=== PATIENT | female | born 1985 | race Caucasian/White ===

== ENCOUNTER 2021-01-03 | Inpatient (IN) | payer BC, SELFPAY ==
[2021-01-03] VITALS (189 sets, daily range): BP systolic 112–174; BP diastolic 64–99; PULSE 48–138; RESP 18; TEMP 36.4–37.6; O2SAT 97–100; BMI 40.2
[2021-01-03 01:03] LABS: Basophils Percent Auto 0.2 % (0.2-1.2); Eosinophils Percent Auto 0.3 % (0-4.4); Hematocrit 33.4 % (37.0-47.0); Hemoglobin 11.4 g/dL (12.0-15.0); Immature Granulocyte Absolute 0.07 K/mm3 (0.00-0.031); Immature Granulocyte Percent A 0.7 % (0-0.5); Lymphocytes Absolute Auto 2.44 K/mm3 (0.9-3.2); Mean Corpuscular HGB Conc 34.1 g/dl (32-36); Mean Corpuscular Hemoglobin 31.1 pg (26-34); Mean Corpuscular Volume 91.3 fl (80-100); Mean Platelet Volume 11.4 fl (7.4-10.4); Monocytes Absolute Auto 0.7 K/mm3 (0.1-0.6); Monocytes Percent Auto 7.2 % (2.6-8.5); Neutrophils Absolute Auto 6.9 K/mm3 (1.3-6.7); Neutrophils Percent Auto 67.6 % (45.5-73.1); Platelet Count Result 218 k/mm3 (150-375); Red Blood Count 3.66 M/mm3 (4.2-5.4); Red Cell Distribution Width 13.3 % (11.5-14.5); White Blood Count 10.2 K/mm3 (4.5-10.0)
--- NOTE | 2021-01-03 01:03 | LDADM ---
This patient, Janell Gomez, was admitted to Labor/Delivery/Recovery 107 on 01/03/21 at 00:00. Plans for labor, pain management and were discussed with patient. Patient/family oriented to hospital policies and general routines including ID bracelet, bed and alarms, visiting hours, pain management, procedures, bathroom and other care routines, personal items, smoking policy, room service/diet and guest tray routines, security routines, and visiting hours. Patient/Family are encouraged to report perceived risks to care and to ask questions if they do not understand what they are told or what they should do. See OBIX for further documentation.
[2021-01-03] MEDS: DINOPROSTONE 10 MG VAG INSERT VAGINAL (01:33)
[2021-01-03 06:11] LABS: Rapid Plasma Reagin Non-Reactive (NonReactive)
[2021-01-03 07:01] LABS: Glucose Point of Care 71 mg/dl (65-105)
--- NOTE | 2021-01-03 07:42 | WPDANESEPP ---
Anes - Eval Pre Procedure Procedure: LABOR EPIDURAL Date/Time: 01/03/21 07:42 Surgeon: deo Preop Diagnosis: pain during labor Pre Op Diagnosis: IOL Patient Data Age: 35 Gender: F Height: 1.7 m Weight: 116.5 kg Last Vital Signs Temp 36.6 C 01/03/21 07:00 Pulse 79 01/03/21 03:31 BP 126/92 H 01/03/21 03:31 Allergies Allergy/AdvReac Type Severity Reaction Status Date / Time No Known Allergies Allergy Unverified 07/14/16 15:39 Home Medications Medication Instructions Recorded Confirmed Type PNV cmb#95-ferrous fumarate-FA 1 tablet PO DAILY 12/16/20 12/16/20 History [] aspirin 81 mg PO DAILY 12/16/20 12/16/20 History Laboratory Tests 01/03/21 01/03/21 01/03/21 00:57 00:57 00:57 WBC 10.2 K/mm3 H K/mm3 (4.5-10.0) RBC 3.66 M/mm3 L M/mm3 (4.2-5.4) Hgb 11.4 g/dL L g/dL (12.0-15.0) Hct 33.4 % L % (37.0-47.0) MCV 91.3 fl fl (80-100) MCH 31.1 pg pg (26-34) MCHC 34.1 g/dl g/dl (32-36) RDW 13.3 % % (11.5-14.5) Plt Count 218 k/mm3 k/mm3 (150-375) MPV 11.4 fl H fl (7.4-10.4) Immature Gran % (Auto) 0.7 % H % (0-0.5) Neut % (Auto) 67.6 % % (45.5-73.1) Lymph % (Auto) 24.0 % % (18.3-44.2) Metcalfe % (Auto) 7.2 % % (2.6-8.5) Eos % (Auto) 0.3 % % (0-4.4) Baso % (Auto) 0.2 % % (0.2-1.2) Lymph # (Auto) 2.44 K/mm3 K/mm3 (0.9-3.2) Metcalfe # (Auto) 0.7 K/mm3 H K/mm3 (0.1-0.6) Eos # (Auto) 0.0 K/mm3 K/mm3 (0-0.3) Baso # (Auto) 0.0 K/mm3 K/mm3 (0.0-0.1) Abs Immat Gran (auto) 0.07 K/mm3 H K/mm3 (0.00-0.031) Absolute Neuts (auto) 6.9 K/mm3 H K/mm3 (1.3-6.7) Absolute Nucleated RBC 0.0 K/mm3 K/mm3 (0.0-0.012) Nucleated RBC % 0.0 % % (0.0-0.2) POC Capillary Glucose RPR Non-reactive (NonReactive) Blood Type A Positive Antibody Screen Negative 01/03/21 06:57 WBC RBC Hgb Hct MCV MCH MCHC RDW Plt Count MPV Immature Gran % (Auto) Neut % (Auto) Lymph % (Auto) Metcalfe % (Auto) Eos % (Auto) Baso % (Auto) Lymph # (Auto) Metcalfe # (Auto) Eos # (Auto) Baso # (Auto) Abs Immat Gran (auto) Absolute Neuts (auto) Absolute Nucleated RBC Nucleated RBC % POC Capillary Glucose 71 mg/dl mg/dl (65-105) RPR Blood Type Antibody Screen Patient hx anesthesia problems: none Family hx anesthesia problems: none Results Review: All pre-operative results and documents have been reviewed as part of the pre-operative evaluation. [facility] Family History Family History (Updated 12/16/20 @ 14:51 by Chito Cruz RN) Mother Hypertension Social History Social History Substance use: never Spiritual care concerns: No Exam Day of Procedure 01/03/21 07:42
--- NOTE | 2021-01-03 08:51 | P.HP_ITS ---
Obstetrics - Admit Note Admission Note: record reviewed. No pertinent additions to the history and/or any subsequent changes in the physical findings that are not consistent with the expected course of the were found. AROM CLEAR FLUID 1/-2 Additions to the history and/or subsequent changes in the physical findings fabricio epperson. None.
[2021-01-03] MEDS: LACTATED RINGERS 1,000 ML 125 ML IV CONT ×2 (09:21→16:42)
[2021-01-03] MEDS: OXYTOCIN 30 UNITS/NS 500 ML 30 UNITS/500 ML BAG IV CONT (09:21)
[2021-01-03 11:17] LABS: Glucose Point of Care 107 mg/dl (65-105)
[2021-01-03 15:23] LABS: Glucose Point of Care 87 mg/dl (65-105)
[2021-01-03 20:01] LABS: Glucose Point of Care 104 mg/dl (65-105)
--- NOTE | 2021-01-03 21:00 | PM.OBPRVD ---
OB - Delivery Note Procedure Delivery date: 01/03/21 Procedure: events: Gestational Diabetes and Labor Induction Intrapartal events: None Induction method: AROM, per pitocin protocol and per cervidil protocol Delivery monitor: external FHT and external uterine Route of delivery: Episiotomy description: Midline Laceration Description: Perineal - 2nd Degree Delivery repair: vicryl Specimen: Yes Quantitative Blood Loss (ml): 250 Anesthesia type: Epidural Disposition: PACU Baby Date of : 01/03/21 Time of : 20:40 Weeks of gestation at delivery: 39 Infant gender: Male Weight (pounds): 6 Weight (ounces): 11 presentation: vertex position: Left Occiput Anterior Placenta delivery description: Spontaneous cord vessel description: 3 Vessels and Around Extremity x1 score one minute: 9 score five minutes: 9
[2021-01-03] MEDS: OXYTOCIN 30 UNITS/NS 500 ML 30 UNITS/500 ML BAG 125 UNITS IV CONT (21:06)
[2021-01-03] MEDS: IBUPROFEN 600 MG TABLET PO (23:13)
[2021-01-03] MEDS: BENZOCAINE 20% AER SPR (*SP) 56 GM CAN 1 SPRAY TOPICAL (23:13)
[2021-01-03] MEDS: WITCH HAZEL 40 PADS 1 PAD TOPICAL (23:13)
[2021-01-04 04:00] VITALS: BP 141/90; PULSE 72; RESP 18; TEMP 36.6; O2SAT 98
[2021-01-04 05:18] LABS: Hematocrit 31.6 % (37.0-47.0); Hemoglobin 10.8 g/dL (12.0-15.0)
[2021-01-04 07:45] VITALS: BP 136/88; PULSE 77; RESP 16; TEMP 37.4; O2SAT 99
--- NOTE | 2021-01-04 10:00 | PC.NURSE ---
Consult with pt., mother reports her plan is to breast and bottle feed. Discussed milk supply and suggested mother supplement after if she feels is not satisfied. Mother states she will bottle feed at times without . Mother states is latching well, with slight tenderness at times. Requested mother call out next feeding for observation and assist with deep latch.
[2021-01-04] MEDS: IBUPROFEN 600 MG TABLET PO ×2 (10:58→20:10)
[2021-01-04] MEDS: DOCUSATE SODIUM 100 MG CAPSULE PO (10:59)
--- NOTE | 2021-01-04 11:15 | WPDANLDPN2 ---
Anes-Prog Note L&D Date/Time: 01/04/21 11:15 Comfortable throughout: labor and delivery Neuraxial method: epidural Epidural/Spinal procedure site: clean & non-tender Neuro status: Neuro function grossly intact. Cardiovascular status: normal Respiratory status: normal Airway patency: baseline Mental status: baseline Post-Op hydration status: normal Vital Signs: Last Vital Signs Temp 37.4 C 01/04/21 07:45 Pulse 77 01/04/21 07:45 Resp 16 01/04/21 07:45 BP 136/88 01/04/21 07:45 Pulse Ox 99 01/04/21 07:45 Pain score (VAS): 0 I/O: Intake & Output 01/03/21 01/04/21 01/04/21 23:59 07:59 15:59 Intake Total 2200 500 Output Total 1325 Balance 875 500 Post-procedural complaints: none Patient feedback: Patient satisfied with anesthetic care.
--- NOTE | 2021-01-04 11:30 | PC.NURSE ---
Mother called out for assist with feeding. Upon entering mother has to breast in cradle with shallow latch. Suggested to release latch and attempt with cross cradle for deeper latch. Reviewed infant feeding cues, frequencies, duration of feedings, feeding elimination flow sheet, and signs of adequate intake. Demonstrated stimulation techniques to wake for feeding. Assisted with infant to breast. Reviewed positioning/alignment in cross cradle, holding breast in ?U? hold and guided asymmetrical latch on. Reviewed rational for each. able to latch correctly within a few attempts. nursed eagerly with steady draws and occasional swallowing noted, some pausing noted. Reviewed signs of a correct latch, effective nursing and suck swallow ratio. Suggested mother stimulate while feeding to increase stimulation for milk supply, for increased intake and to assist with maintaining deep latch. would slip to shallow latch causing tenderness. Demonstrated how to adjust latch more deeply while feeding as needed. Mother reports she can feel the difference in latch with no tenderness. Nipple care reviewed of lanolin after feedings, warm compresses as needed. Instructed mother to call out for RN assistance if she is unable to latch infant for feeding or she has discomfort with nursing. Instructed feeding should be initiated three hours from start of last feeding or if feeding cues are noted before. Mother voiced understanding of information shared.
[2021-01-04 11:58] VITALS: BP 147/91; PULSE 83; RESP 18; TEMP 36.9; O2SAT 99
[2021-01-04 16:20] VITALS: BP 153/97; PULSE 67; RESP 16; TEMP 36.7; O2SAT 99
[2021-01-04 16:32] VITALS: BP 151/99; PULSE 69; O2SAT 100
[2021-01-04 20:00] VITALS: BP 153/98; PULSE 82; PULSE 99; RESP 16; TEMP 36.5; O2SAT 82; O2SAT 99
[2021-01-05 05:23] VITALS: BP 142/84
[2021-01-05 07:55] VITALS: BP 144/90; PULSE 70; RESP 18; TEMP 36.6; O2SAT 100
[2021-01-05 08:40] VITALS: PULSE 82; RESP 16; O2SAT 99
[2021-01-05] MEDS: IBUPROFEN 600 MG TABLET PO (09:00)
[2021-01-05] MEDS: DOCUSATE SODIUM 100 MG CAPSULE PO (09:01)
[2021-01-05] MEDS: MULTIVIT/MIN/PREN/FOL AC/IRON TABLET 1 TAB PO (09:01)
--- NOTE | 2021-01-05 09:15 | PC.NURSE ---
Observed mother is able to independently latch with appropriate positioning/alignment. She denies any nipple discomfort, is feeding as required and waking infant to feed if needed. has had several effective feedings in the past 24 hours, and is currently meeting outcomes for weight, output, jaundice and feeding frequencies. Mother states she feels confident to continue effective /supplementation at home. Mother states once her milk is in she will pump if FOB wishes to bottle feed. Reviewed transition to breast milk, signs of adequate intake, and engorgement/relief. Instructed to call ICP if intake/output less than required. Reviewed regular medications mother is taking. Information provided per Nery. Reviewed community resources on the [facility] website and in the Mom/Baby guide. Information on outpatient services provided. Mother has no further questions at this time.
--- NOTE | 2021-01-05 09:54 | PC.NURSE ---
Patient viewed the discharge video Mother & Baby Care, The First Two Weeks . Patient was given the opportunity and encouraged to ask questions. Patient verbalized understanding of information shared and has been given the mother/baby guide for home reference.
[2021-01-07 08:48] VITALS: BP 156/92; PULSE 66; RESP 20; TEMP 37.3; O2SAT 100
--- NOTE | 2021-01-08 16:57 | PM.OBDSVD ---
DS: Admitting Diagnosis Discharge Date 01/05/21 Admitting Diagnosis induction of labor gestational Diabetes OB - DS: Summary OB Procedures : NST and Ultrasound OB Procedures Intrapartum: Spontaneous Vag Delivery OB Procedures: : None Time Spent with Patient Time attestation: Total time spent providing and/or coordinating discharge services: DS: Data Data Completed and Pending Pending studies at discharge: Pending at discharge 01/03/21 20:48 Surgical [PTH] Routine Discharge Plan Discharge Attending physician on discharge: Gwyn Ochoa Discharging Clinician: Gwyn Ochoa Patient Disposition: Home, Self-Care Activity: may shower and pelvic rest Diet: regular Discharge Instructions: Education: Mom and Baby Guide Given to: Mother Follow-Up: Call your delivering provider's office for an appointment to be seen in: 6 Weeks Mom and baby [facility] for the follow-up appointment. Appointment Date/Time: Thursday, January 07, 2021 at 9:00 a.m. What to expect at your follow-up visit: Blood Pressure Check Physical Assessment Call [phone] if you are unable to keep your appointment time. BREAST CARE: * Wear a snug supportive bra. * For engorgement discomfort: Breast Feeding: * Apply warm moist washcloths * Express milk as needed to relieve engorgement * Wear loose clothing Bottle Feeding: * May apply ice packs * For sore nipples: * Identify correct latch-on * Apply warm moist washcloths before and after nursing * Air dry nipples after nursing * May apply Lansinoh cream to nipples EPISIOTOMY/PERINEAL CARE: * Until bleeding stops, use your manju bottle after urinating * Change your pad frequently throughout the day * You may take sitz baths several times a day (fill your bathtub with warm water and soak for 20 minutes.) Do NOT bathe in the water * No tub baths until seen by your physician - You may shower ACTIVITY: * Rest as much as possible. * Do not exercise or lift anything heavier than your baby (such as laundry or other children.) * Avoid stairs or driving as much as possible. * Do not put anything into the vagina. No douching, tampons, or sexual activity until seen by physician. NOTIFY PHYSICIAN IF YOU HAVE ANY QUESTIONS OR IF ANY OF THE FOLLOWING SYMPTOMS OCCUR: * If your perineum becomes red, swollen, or more painful than what you have experienced in the hospital. * If your vaginal bleeding becomes foul smelling. * If your vaginal bleeding becomes more heavy than a period or if your bleeding changes from pink to bright red. However, you may pass an occasional walnut-sized clot once or twice for the first week . * If you experience a sharp, shooting pain in you calves. * If you discover a hard, reddened area on your breast or if you experience flu-like symptoms. DIET: * Eat regular, well-balanced meals. * Drink plenty of fluids daily. If , drink to thirst. Stand Alone Forms: General Discharge Information Follow-up/Referrals: Gwyn Ochoa MD [Physician] - 6 Weeks Discharge Medications: Continued PNV cmb#95-ferrous fumarate-FA [] 28 mg iron- 800 mcg Tablet 1 tablet PO DAILY RF: 0 Discontinued aspirin 81 mg Tablet 81 mg PO DAILY RF: 0 Date of admission: 01/03/21 00:00 Primary Care Provider: PHYSICIAN,SECURITY TEST ENGINEER Admitting Provider: Gwyn Ochoa Attending physician on admission: Gwyn Ochoa Condition: Stable
== END 2021-01-05 14:15 | disposition home or self-care (01) | DRG 807 ==
LOC: ANHLDR 00:04 → ANHOB2 01-04 01:16
PROVIDERS: Admitting Provider Obstetrics & Gynecology; Visit Provider Obstetrics & Gynecology
DX: O24.429 Gestational diabetes mellitus in childbirth, unspecified control (principal); Z37.0 Single live birth; O70.1 Second degree perineal laceration during delivery; O69.82X0 Labor and delivery complicated by other cord entanglement, without compression, not applicable or unspecified; O76 Abnormality in fetal heart rate and rhythm complicating labor and delivery; Z3A.39 39 weeks gestation of pregnancy
CPT/HCPCS: 36415; 82948; 85014; 85018; 85025; 86592; 86850; 86900; 86901; 88307; A9270; J2590; J2795; J7120

== ENCOUNTER 2021-01-12 13:46 | Outpatient (CLI) | payer BC, SELFPAY ==
[2021-01-12 14:51] LABS: Hematocrit 40.1 % (37.0-47.0); Hemoglobin 13.2 g/dL (12.0-15.0); Mean Corpuscular HGB Conc 32.9 g/dl (32-36); Mean Corpuscular Hemoglobin 30.1 pg (26-34); Mean Corpuscular Volume 91.6 fl (80-100); Mean Platelet Volume 10.1 fl (7.4-10.4); Platelet Count Result 375 k/mm3 (150-375); Red Blood Count 4.38 M/mm3 (4.2-5.4); White Blood Count 8.3 K/mm3 (4.5-10.0)
[2021-01-12 15:04] LABS: Alanine Aminotransferase 35 U/L (4-35); Albumin Level 4.2 g/dL (3.5-5.1); Alkaline Phosphatase 98 U/L (38-126); Anion Gap 7 mmol/L (8-16); Aspartate Amino Transferase 28 U/L (14-36); Bilirubin,Total 0.5 mg/dL (0.2-1.3); Blood Urea Nitrogen 10 mg/dL (7-17); Calcium 9.5 mg/dL (8.4-10.2); Carbon Dioxide 28 mmol/L (22-30); Chloride 104 mmol/L (98-107); Estimated Glomerular Filt Rate > 60; Glucose 100 mg/dL (65-110); Lactate Dehydrogenase 525 U/L (313-618); Potassium 3.5 mmol/L (3.4-5.0); Sodium 139 mmol/L (137-145); Uric Acid 6.8 mg/dL (2.5-7.5)
== END 2021-01-12 13:47 | disposition home or self-care (01) ==
LOC: ANHLAB 13:51
PROVIDERS: Visit Provider Obstetrics & Gynecology
DX: O13.5 Gestational [pregnancy-induced] hypertension without significant proteinuria, complicating the puerperium (principal)
CPT/HCPCS: 36415; 80053; 83615; 84550; 85027

== ENCOUNTER 2021-12-27 16:55 | Emergency (ER) | payer BC, SELFPAY ==
[2021-12-27 17:03] VITALS: BP 168/95; PULSE 74; RESP 18; TEMP 36.6; O2SAT 100
--- NOTE | 2021-12-27 17:17 | ED.FEMALEGU ---
HPI - Female Genitourinary General Chief complaint: Urogenital-Female Stated complaint: possible uti Time Seen by Provider: 12/27/21 17:11 Source: patient Mode of arrival: ambulatory Limitations: no limitations History of Present Illness HPI Narrative: Patient presents today complaining of a 2 day history of cloudy urine, malodorous urine, and pain at the end of her urine stream. Denies any additional symptoms to include hematuria, abdominal pain, back pain, fever, nausea or vomiting. She has tried azo without relief. Related Data Home Medications Medication Instructions Recorded Confirmed norethin-ethinyl estradiol-iron 1 tablet PO DAILY 12/27/21 12/27/21 0.8 mg-25 mcg(24)/75 mg(4) chew tablet (Kaitlib Fe) Allergies Allergy/AdvReac Type Severity Reaction Status Date / Time No Known Allergies Allergy Verified 12/27/21 17:11 Review of Systems Review of Systems: CONSTITUTIONAL: Denies body aches, fever, chills, or sweats. EYES: Denies visual changes, redness, or discharge. ENT: Denies rhinorrhea, congestion, sore throat, or otalgia. CARDIOVASCULAR: Denies chest pain, palpitations, or edema. RESPIRATORY: Denies cough or dyspnea. GASTROINTESTINAL: Denies abdominal pain, nausea, vomiting, or diarrhea. GENITOURINARY: Denies hematuria.+ cloudy and malodorous urine, dysuria SKIN: Denies rash, itching, or wounds. MUSCULOSKELETAL: Denies back pain, joint pain, or myalgia. NEUROLOGIC: Denies headache, numbness, tingling, or weakness. PSYCH: Denies depression or anxiety. PMFSH Family History Family History Mother Hypertension Social History Social History Smoking status: Never smoker Substance use: never Spiritual care concerns: No Comments At time of signature, I have reviewed and agree with nursing past medical, surgical, social and family history unless otherwise noted. Please see nursing chart for further information. There is no relevant family history pertinent to the presenting complaint Exam Narrative: GENERAL: Well-appearing, well-nourished, and in no acute distress. HEAD: Normocephalic, atraumatic. EYES: EOMI. No redness or drainage. Conjunctivae normal. ENT: Mucous membranes pink and moist. NECK: Normal AROM. CHEST: No respiratory distress. Clear to auscultation. HEART: Regular rate and rhythm. No murmur appreciated. Normal peripheral pulses. ABDOMEN: Soft, , nondistended, normal active bowel sounds. Mild suprapubic tenderness.-CVAT MUSCULOSKELETAL: No bony tenderness. EXTREMITIES: Normal range of motion. No edema. SKIN: Warm, dry, no rash. Capillary refill normal. Normal skin turgor. NEURO: No focal deficits. Alert and oriented x3. Gait steady. PSYCH: Normal affect. No signs of depression or anxiety. Course Course Level of Care: Express Care Visit Vital Signs Vital signs: Vital Signs Temperature 97.8 F 12/27/21 17:03 Pulse Rate 74 12/27/21 17:03 Respiratory Rate 18 12/27/21 17:03 Blood Pressure 168/95 H 12/27/21 17:03 Pulse Oximetry 100 12/27/21 17:03 Oxygen Delivery Room Air 12/27/21 17:03 Temperature 97.8 F 12/27/21 17:03 Pulse Rate 74 12/27/21 17:03 Respiratory Rate 18 12/27/21 17:03 Blood Pressure 168/95 H 12/27/21 17:03 Pulse Oximetry 100 12/27/21 17:03 Oxygen Delivery Room Air 12/27/21 17:03 Reviewed. Pt has been instructed to follow up with her PCP regarding her elevated blood pressure today. MDM - Female Genitourinary Differential Diagnosis Differential diagnosis: Likely urinary tract infection, vaginitis, cystitis and other (Pyelonephritis, interstitial cystitis) Lab Data Attestation: I reviewed the patient's lab results. Labs: Urine Glucose Negative Reference Range: Negative Urine Bilirubin Negative
== END 2021-12-27 17:25 | disposition home or self-care (01) ==
PROVIDERS: Emergency Provider Nurse Practitioner
DX: N30.01 Acute cystitis with hematuria (principal)
CPT/HCPCS: 81003; 87086; 87088; 99213; G0463

== ENCOUNTER 2022-01-18 11:07 | Emergency (ER) | payer BC, SELFPAY ==
[2022-01-18 11:16] VITALS: BP 150/99; PULSE 118; RESP 18; TEMP 36.4; O2SAT 99
--- NOTE | 2022-01-18 11:58 | ED.URI ---
HPI - URI/Sore Throat General Chief Complaint: Upper Respiratory Infection Stated Complaint: Body Aches,Congestion,Cough Time Seen by Provider: 01/18/22 11:51 Source: patient Mode of arrival: ambulatory Limitations: no limitations History of Present Illness HPI Narrative: Patient presents today complaining of chills, body aches, and fever up to 100.8 since last night. She reports multiple influenza sick contacts at work. She also reports a 10 day history of sinus pressure, congestion, productive cough with postnasal drip. She has been taking Mucinex and Sudafed with mild relief. Related Data Home Medications Medication Instructions Recorded Confirmed norethin-ethinyl estradiol-iron 1 tablet PO DAILY 12/27/21 01/18/22 0.8 mg-25 mcg(24)/75 mg(4) chew tablet (Kaitlib Fe) Allergies Allergy/AdvReac Type Severity Reaction Status Date / Time No Known Allergies Allergy Verified 01/18/22 11:26 Review of Systems Review of Systems: CONSTITUTIONAL: Denies sweats.+ chills, body aches, fever EYES: Denies visual changes, redness, or discharge. ENT: Denies rhinorrhea, sore throat, or otalgia.+ congestion, postnasal drip CARDIOVASCULAR: Denies chest pain, palpitations, or edema. RESPIRATORY: Denies dyspnea.+ cough, chest congestion GASTROINTESTINAL: Denies abdominal pain, nausea, vomiting, or diarrhea. GENITOURINARY: Denies dysuria or hematuria. SKIN: Denies rash, itching, or wounds. MUSCULOSKELETAL: Denies back pain, joint pain, or myalgia. NEUROLOGIC: Denies headache, numbness, tingling, or weakness. PSYCH: Denies depression or anxiety. [facility] Family History Family History Mother Hypertension Social History Social History Smoking status: Never smoker Substance use: never Spiritual care concerns: No Comments At time of signature, I have reviewed and agree with nursing past medical, surgical, social and family history unless otherwise noted. Please see nursing chart for further information. There is no relevant family history pertinent to the presenting complaint Exam Narrative: GENERAL: Mildly ill-appearing, well-nourished, and in no acute distress. HEAD: Normocephalic, atraumatic. EYES: EOMI. No redness or drainage. Conjunctivae normal. ENT: Mucous membranes pink and moist. Nares congested. No rhinorrhea. TMs normal bilaterally. Throat normal. Uvula midline. NECK: Normal AROM. Supple. No lymphadenopathy. CHEST: No respiratory distress. Clear to auscultation. HEART: Regular rhythm. Tachypnea. No murmur appreciated. Normal peripheral pulses. EXTREMITIES: Normal range of motion. No edema. SKIN: Warm, dry, no rash. Capillary refill normal. Normal skin turgor. NEURO: No focal deficits. Alert and oriented x3. Gait steady. PSYCH: Normal affect. No signs of depression or anxiety. Course Course Level of Care: Express Care Visit Vital Signs Vital signs: Vital Signs Temperature 97.5 F L 01/18/22 11:16 Pulse Rate 118 H 01/18/22 11:16 Respiratory Rate 18 01/18/22 11:16 Blood Pressure 150/99 H 01/18/22 11:16 Pulse Oximetry 99 01/18/22 11:16 Oxygen Delivery Room Air 01/18/22 11:16 Temperature 97.5 F L 01/18/22 11:16 Pulse Rate 118 H 01/18/22 11:16 Respiratory Rate 18 01/18/22 11:16 Blood Pressure 150/99 H 01/18/22 11:16 Pulse Oximetry 99 01/18/22 11:16 Oxygen Delivery Room Air 01/18/22 11:16 Reviewed. Pt has been instructed to follow up with her PCP regarding her elevated blood pressure today. MDM - URI/Sore Throat MDM Narrative Medical decision making narrative: out of influenza swabs Differential Diagnosis Differential diagnosis: Likely upper respiratory infection, sinusitis, viral infection and influenza Critical Care Time Critical Care Time Critical Care Time: No Discharge Plan Discharge Clinical Impression: Bacterial
== END 2022-01-18 12:07 | disposition home or self-care (01) ==
PROVIDERS: Emergency Provider Nurse Practitioner
DX: J32.9 Chronic sinusitis, unspecified (principal)
CPT/HCPCS: 99213; G0463

== ENCOUNTER 2024-01-17 15:38 | Outpatient (CLI) | payer BC, SELFPAY ==
--- NOTE | ~2024-01-17 | MM_ITS ---
EXAMINATION: MM screening kasandra BI w mariluz HISTORY: Screening TECHNIQUE: Craniocaudal and mediolateral oblique 3-D tomosynthesis images were obtained and synthetic 2-D images were generated. CAD analysis was submitted and interpreted. COMPARISON: No prior mammogram is available for comparison at this institution. BREAST PARENCHYMAL COMPOSITION: There are scattered areas of fibroglandular density. FINDINGS: There is no evidence of suspicious mass, calcification, or architectural distortion to sugg est malignancy in either breast. There has been no suspicious interval change. IMPRESSION: 1. No mammographic evidence of malignancy. 2. Recommend routine screening mammography in one year. BI-RADS Category 1: Negative Reviewed, dictated and finalized at location B. [employer]
== END 2024-01-17 15:39 | disposition home or self-care (01) ==
LOC: MICIMG 15:38
PROVIDERS: PCP Nurse Practitioner; Visit Provider Nurse Practitioner
DX: Z12.31 Encounter for screening mammogram for malignant neoplasm of breast (principal)
CPT/HCPCS: 77063; 77067